=== PATIENT | male | born 1955 ===

== ENCOUNTER 2018-10-16 07:48 | Outpatient (CLI) | payer OTHER ==
[~2018-10-16] VITALS: Ht 172.7 cm; Wt 101.2 kg
== END 2018-10-16 08:10 | disposition home or self-care (01) ==
LOC: OFIC 805 07:48
DX: R42 Dizziness and giddiness (principal); J37.0 Chronic laryngitis; K21.9 Gastro-esophageal reflux disease without esophagitis; J31.0 Chronic rhinitis